=== PATIENT | female | born 1975 | race Caucasian/White ===

== ENCOUNTER 2022-09-13 15:46 | Outpatient (REF) | payer BC, SELFPAY ==
--- NOTE | 2022-09-13 15:05 | PAPFT_PTH ---
PATIENT: Chelsey Giraldo LOC: [facility] U#:[id number] AGE/SX: 47/F ROOM: RE09/13/[address]: Nu Atkinson : 1975 BED: DIS: 09/13/2022 SPEC #: [id number] RECD: 09/19/22 13:42 STATUS: EFRAIN REManny #: [id number] GERMAIN: 09/13/22 15:[address]: Nu Atkinson DEPT: [facility] Cytology RECD BY: Susan Clayton Tissues: 1 - CX/ENDOCX FOR PAP SMEARS Procedures: PAP THIN PREP/UVM Screening HPV DNA PROBE Comments: [id number]
== END 2022-09-13 15:47 | disposition home or self-care (01) ==
LOC: LBN 15:46
PROVIDERS: PCP Family Medicine; Visit Provider Family Medicine
DX: Z12.4 Encounter for screening for malignant neoplasm of cervix (principal); B37.9 Candidiasis, unspecified
CPT/HCPCS: 88142; 87624

== ENCOUNTER 2023-01-20 01:06 | Outpatient (CLI) | payer BC, SELFPAY ==
[2023-01-20 12:33] LABS: Calculated LDL 130 mg/dL (<100); Cholesterol 249 mg/dL (<200); HDL Cholesterol 105 mg/dL (40-60); Triglyceride 71 mg/dL (<150)
[2023-01-21 09:47] LABS: Hepatitis C Ab w Rflx HCV PCR Negative (Negative)
[2023-01-21 10:02] LABS: HIV-1/2 Ag & Ab Screen Negative (Negative)
== END 2023-01-20 01:07 | disposition home or self-care (01) ==
PROVIDERS: PCP Family Medicine; Visit Provider Family Medicine
DX: Z13.6 Encounter for screening for cardiovascular disorders (principal); Z11.4 Encounter for screening for human immunodeficiency virus [HIV]; Z00.00 Encounter for general adult medical examination without abnormal findings
CPT/HCPCS: 36415; 80061; 86803; 87389

== ENCOUNTER 2023-06-24 04:46 | Outpatient (CLI) | payer BC, SELFPAY ==
[2023-06-24 13:30] LABS: TSH (W/Ref FT4) 2.09 uIU/mL (0.36-3.74)
[2023-06-24 23:01] LABS: Thyroglobulin Antibody <15 U/mL (<=60); Thyroperoxidase Antibody <28 U/mL (<=60)
[2023-06-25 14:57] LABS: ANA Interpretation Negative (Negative)
[2023-06-26 12:43] LABS: Clam IgE 0.19 kU/L (<0.70); Crab IgE 0.24 kU/L (<0.70); Lobster IgE 0.28 kU/L (<0.70); Oyster IgE <0.10 kU/L (<0.70); Scallop IgE <0.10 kU/L (<0.70); Shrimp IgE <0.10 kU/L (<0.70)
== END 2023-06-24 04:47 | disposition home or self-care (01) ==
LOC: LBO 04:46
PROVIDERS: PCP Family Medicine; Visit Provider Physician Assistant
DX: Z83.49 Family history of other endocrine, nutritional and metabolic diseases (principal); H05.20 Unspecified exophthalmos; Z91.018 Allergy to other foods; L50.8 Other urticaria; T78.2XXA Anaphylactic shock, unspecified, initial encounter
CPT/HCPCS: 36415; 86376; 84443; 86003; 86038

== ENCOUNTER 2024-08-26 21:55 | Emergency (ER) | payer BC, SELFPAY ==
[2024-08-26 21:56] VITALS: BP 164/81; PULSE 75; RESP 16; TEMP 36.6; O2SAT 97
--- NOTE | 2024-08-26 22:18 | W.ED.GENAD ---
Discharge Plan Disposition Patient Disposition: Home Condition: Stable Discharge Details Clinical Impression: Otitis media Primary Care Provider: Nu Atkinson ED Provider: Madison Almonte Home Meds and New Rx's Prescriptions: New amoxicillin-pot clavulanate 875-125 mg tablet 1 tab PO BID 7 Days Qty: 14 0RF No Action propranolol 10 mg tablet 10 mg PO DAILY PRN Patient Comments: TAKE 1 TABLET BY MOUTH NEEDED FOR PUBLIC SPEAKING PHOBIA zolpidem 10 mg tablet 10 mg PO QHS PRN (Reason: insomnia) Qty: 20 0RF progesterone micronized 100 mg capsule 100 mg PO QAM Qty: 63 3RF Rx Instructions: off 7 days; repeat cycle epinephrine 0.3 mg/0.3 mL auto-injector 0.3 mg IM Q4H PRN (Reason: anaphylaxis) Qty: 2 1RF estradiol 1 mg tablet 1 mg PO DAILY Qty: 90 3RF Rx Instructions: off 1 week; repeat cycle Discharge Instructions Additional Instructions: There appears to be infected fluid behind your left eardrum. This is likely causing the surrounding lymph nodes to become enlarged. Start the antibiotic as prescribed and continue Motrin or Tylenol as needed. If you develop worsening pain fever or your ear starts to push forward these are all signs needing emergent reevaluation, otherwise please follow-up with your primary care provider early next week for reevaluation. HPI General Date/Time Provider Initiated Documentation: 08/26/24 21:58. Limitations to Documentation: no limitations. Information obtained by: patient. HPI Narrative: 49-year-old female without significant past medical history presents for evaluation of left-sided ear pain. She reports symptoms have been ongoing for the last couple days and she feels that the discharge in her ear is smelly. She reports that today she started noticing some swelling behind and in front of her ear. Some pain with that area. No fever. No recent exposures. Denies any surgery in her ear. Related Data Home Medications ?Medication ?Instructions ?Recorded ?Confirmed progesterone micronized 100 mg 100 mg PO QAM #63 caps 11/27/22 08/26/24 capsule epinephrine 0.3 mg/0.3 mL 0.3 mg (0.3 mL) IM Q4H PRN 12/31/22 08/26/24 injection, auto-injector anaphylaxis #2 ea estradiol 1 mg tablet 1 mg PO DAILY #90 tabs 02/11/24 08/26/24 propranolol 10 mg tablet 10 mg PO DAILY PRN 08/12/24 08/26/24 zolpidem 10 mg tablet 10 mg PO QHS PRN insomnia #20 tabs 08/12/24 08/26/24 amoxicillin 875 mg-potassium 1 tab PO BID 7 days #14 tabs 08/26/24 clavulanate 125 mg tablet Previous Rx's ?Medication ?Instructions ?Recorded progesterone micronized 100 mg 100 mg PO QAM #63 caps 11/27/22 capsule epinephrine 0.3 mg/0.3 mL 0.3 mg (0.3 mL) IM Q4H PRN 12/31/22 injection, auto-injector anaphylaxis #2 ea estradiol 1 mg tablet 1 mg PO DAILY #90 tabs 02/11/24 zolpidem 10 mg tablet 10 mg PO QHS PRN insomnia #20 tabs 08/12/24 amoxicillin 875 mg-potassium 1 tab PO BID 7 days #14 tabs 08/26/24 clavulanate 125 mg tablet Allergies Allergy/AdvReac Type Severity Reaction Status Date / Time shellfish derived Allergy Intermediate Hives Verified 08/26/24 22:00 benzoyl peroxide Allergy Unknown Unknown Unverified 08/26/24 22:00 gold sodium thiomalate Allergy Unknown Unknown Unverified 08/26/24 22:00 General Stated Complaint: EarProblem MARYANA: 4 Exam Narrative Exam Narrative: Review of Systems: All systems reviewed & are unremarkable except as noted in HPI and below Well-developed, no acute distress Afebrile NCAT , no appreciable facial swelling PERRL, normal conjunctiva There is a posterior auricular lymph node that is small Pinna not proptotic, no mastoid tenderness Left ear canal unremarkable no debris, TM with purulent effusion noted Right ear unremarkable RRR Unlabored respiratory effort Course Vital Signs Vital signs: Vital Signs Temperature 36.6 C 08/26/24 21:56 Pulse 75 08/26/24 21:56 Respiratory Rate 16 08/26/24 21:56 Blood Pressure 164/81 H 08/26/24 21:56 Pulse Oximetry 97 08/26/24 21:56 Temperature 36.6 C 08/26/24 21:56 Temperature Source Skin 08/26/24 21:56 Pulse 75 08/26/24 21:56 Respiratory Rate 16 08/26/24 21:56 Blood Pressure 164/81 H 08/26/24 21:56 Pulse Oximetry 97 08/26/24 21:56 Oxygen Delivery Method Room Air 08/26/24 21:56 Oxygen Flow Rate 0 08/26/24 21:56 Medical Decision Making Emergent evaluation of left ear pain. Patient is concerned about swelling around her ear which I suspect is secondary to reactive lymphadenopathy. But there is no signs of significant deep space infection or other concerns. No mastoid tenderness to indicate mastoiditis. She has symptoms consistent with a purulent effusion behind her ear which would indicate otitis media. Will treat with Augmentin. First dose given in the emergency department. The remaining doses were sent to her pharmacy to [facility]. Return precautions advised and recommend following up for reevaluation of the ear next week with her PCP PFSH All Active Problems (Updated 08/26/24 @ 22:13 by Madison Almonte MD) Otitis media (Acute) Epidermal cyst (Acute) Deviated nasal septum (Acute) Family history of thyroid disease (Acute) Proptosis (Acute) Food allergy (Acute) negative RAST for shrimp; rash improved with benadryl. Recurrent urticaria (Acute) Neck stiffness (Acute) Anaphylaxis (Acute) hx, uncertain cause Eczema of both external ears (Chronic) managed with fluocinolone oil IBS (irritable bowel syndrome) (Chronic) improves with dietary mgmt. Insomnia (Chronic) manages with intermittent use of zolpidem. Allergic rhinitis (Chronic) uses cetirizine, nasacort Medical History (Updated 08/26/24 @ 22:13 by Madison Almonte MD) Idiopathic scoliosis of cervicothoracic spine had visit with [facility] Hx of hyperparathyroidism s/p parathyroidectomy. Panic disorder without agoraphobia Related to public speaking and job stress, managed with beta blockers. 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 Colposcopy x 1; resolved with subsequent negative pap/HPV. Premature ovarian failure (~2014) Age 39. Managed with HRT; opted out of genetic testing. Near syncope Intermittent, related to healthcare Surgical History (Updated 09/13/22 @ 14:42 by Nu Atkinson MD) S/P parathyroidectomy age 38 Family History (Updated 10/01/23 @ 14:25 by Nu Atkinson MD) Mother No problems noted. Father Hyperlipidemia Leukemia Thyroid cancer Carotid artery stenosis Maternal Grandfather , 71 Alcohol use disorder Cancer Liver Paternal Grandfather , 50's Heart disease Maternal Grandmother , 81 Cancer Uterine Depression Anxiety Stroke Paternal Grandmother , 50's Bone cancer Exposed to radium in youth. - Per patient packet Social History (Updated 10/01/23 @ 14:26 by Nu Atkinson MD) Smoking/Tobacco Use Status: Never Second Hand Exposure: Yes Smoking risk assessment performed?: Yes Alcohol Intake: current Alcohol Intake frequency: a few times a week Alcohol type: beer, wine and hard liquor Drug use: Occasionally Substance use type: marijuana Caregiver/Support person: Yes Details: is caregiver for spouse - he has expressive aphasia Household members: spouse and children Housing: house Number of Children: 0 Communication Needs: None Education Level: college Details: BA in [place] Do you need help understanding health information?: Never current occupation: Works as a copyrighter. Pets and animals: Yes Pets and animals: dog(s) Sexually active: Yes Do you think of yourself as: straight/heterosexual Current gender identity: female What is your relationship status?: living with partner How often do you talk on the phone with friends or family?: twice per week How often do you get together with friends or relatives?: three or more times per week How often do you attend sikhism or voodoo services?: 1-3 times per year Do you belong to any clubs or organized social groups?: no Panel score (0-1 are the most socially isolated patients): 2 What type of physical activity do you participate in: walking, other Details: Strength Training; gardening and running Frequency: daily Tori/Denominational: Agnostic Seatbelt use: always Helmet use: Yes Helmet use: sometimes Drive intox or ride w/intox car pick up driver: No Additional Social history: Enjoys gardening, ceramics.
[2024-08-26] MEDS: Amoxicillin 875/Clav. 125 TAB PO (22:31)
== END 2024-08-26 22:31 | disposition home or self-care (01) ==
PROVIDERS: Emergency Provider Emergency Medicine; PCP Family Medicine
DX: H66.92 Otitis media, unspecified, left ear (principal)
CPT/HCPCS: 99283 ×2

== ENCOUNTER 2024-10-18 15:05 | Emergency (ER) | payer BC, SELFPAY ==
[2024-10-18 15:16] VITALS: BP 144/85; PULSE 88; RESP 16; TEMP 36.9; O2SAT 95
--- NOTE | 2024-10-18 16:42 | W.ED.GENAD ---
Discharge Plan Disposition Patient Disposition: Home Condition: Good Discharge Details Clinical Impression: Acute otitis media of left ear with perforated tympanic membrane Primary Care Provider: Nu Atkinson ED Provider: Soledad Stinson Home Meds and New Rx's Prescriptions: New cefpodoxime 200 mg tablet 200 mg PO BID Qty: 10 0RF Rx Instructions: must administer with a meal/food Continued epinephrine 0.1 mg/0.1 mL auto-injector 0.1 ml subcut Q5-15M PRN (Reason: hypersensitivity reaction) Qty: 2 3RF estradiol [Estrace] 0.01 % (0.1 mg/gram) cream 0.5 g vaginal QWEEK Qty: 42.5 3RF progesterone micronized 100 mg capsule 100 mg PO QAM Qty: 63 3RF Rx Instructions: off 7 days; repeat cycle zolpidem 10 mg tablet 10 mg PO QHS PRN (Reason: insomnia) Qty: 20 0RF propranolol 10 mg tablet 10 mg PO DAILY PRN Patient Comments: TAKE 1 TABLET BY MOUTH NEEDED FOR PUBLIC SPEAKING PHOBIA estradiol 1 mg tablet 1 mg PO DAILY Qty: 90 3RF Rx Instructions: off 1 week; repeat cycle Discharge Instructions Instructions: Ruptured Eardrum ED Additional Instructions: Please call your primary care provider first thing in the morning to schedule follow-up appointment. I recommend that you keep your appointment with the specialist ENT as scheduled to discuss your frequent ear infections. I have prescribed an antibiotic called cefpodoxime. Please take the full course as prescribed. You may use warm compresses or cool compresses as needed for discomfort to your ear. Tylenol and ibuprofen may also be helpful. Please do not put anything in your ear such as Q-tips or eardrops. Avoid getting water in your ear. When you take a shower, please be sure to put a cottonball in your ear to prevent it from getting wet. Do not do any swimming while you have a perforated tympanic membrane Return to emergency care if you develop new fever/chills, hearing loss, severe headaches, vision changes, swelling on one side of your neck or protrusion of the ear, or if you are very worried and need to be rechecked again immediate Referrals: Nu Atkinson MD [Primary Care Provider, Medicine] Discharge Data Discharge Date/Time-TO BE ENTERED AT DEPARTURE: 10/18/24 16:57 HPI General Date/Time Provider Initiated Documentation: 10/18/24 15:51. HPI Narrative: Suki is a 49-year-old female who presents to the emergency department today for evaluation of left ear pain and drainage. She reports that she was diagnosed with an ear infection approximately 1 month ago, treated with Augmentin and symptoms fully resolved. 1 week ago developed ear pressure L>R with yellow drainage from her ear for the last 5 days. Denies associated fever/chills, unusual headaches, significant vision changes, sore throat, neck pain, cough. Use some calamine lotion outside of ear, but has not put anything in her ear. She does have some swelling to the lymph nodes behind her right ear as well. Has been taking allergy medications and decongestants without improvement of symptoms. She does have a history of frequent ear infections, has an appoint with ENT next month. Related Data Home Medications ?Medication ?Instructions ?Recorded ?Confirmed estradiol 1 mg tablet 1 mg PO DAILY #90 tabs 02/11/24 10/18/24 propranolol 10 mg tablet 10 mg PO DAILY PRN 08/12/24 10/18/24 epinephrine 0.1 mg/0.1 mL 0.1 ml subcut Q5-15M PRN 10/01/24 10/18/24 injection, auto-injector hypersensitivity reaction #2 ea estradiol 0.01% (0.1 mg/gram) 0.5 g vaginal QWEEK #42.5 grams 10/01/24 10/18/24 vaginal cream (Estrace) progesterone micronized 100 mg 100 mg PO QAM #63 caps 10/01/24 10/18/24 capsule zolpidem 10 mg tablet 10 mg PO QHS PRN insomnia #20 tabs 10/01/24 10/18/24 cefpodoxime 200 mg tablet 200 mg PO BID #10 tabs 10/18/24 Previous Rx's ?Medication ?Instructions ?Recorded estradiol 1 mg tablet 1 mg PO DAILY #90 tabs 02/11/24 epinephrine 0.1 mg/0.1 mL 0.1 ml subcut Q5-15M PRN 10/01/24 injection, auto-injector hypersensitivity reaction #2 ea estradiol 0.01% (0.1 mg/gram) 0.5 g vaginal QWEEK #42.5 grams 10/01/24 vaginal cream (Estrace) progesterone micronized 100 mg 100 mg PO QAM #63 caps 10/01/24 capsule zolpidem 10 mg tablet 10 mg PO QHS PRN insomnia #20 tabs 10/01/24 cefpodoxime 200 mg tablet 200 mg PO BID #10 tabs 10/18/24 Allergies Allergy/AdvReac Type Severity Reaction Status Date / Time shellfish derived Allergy Intermediate Hives Verified 10/01/24 14:01 benzoyl peroxide Allergy Unknown Unknown Unverified 10/01/24 14:01 gold sodium thiomalate Allergy Unknown Unknown Unverified 10/01/24 14:01 General Stated Complaint: EarProblem MARYANA: 4 Exam Narrative Exam Narrative: General Appearance: Normal. Patient alert and oriented, no acute distress Vital signs: Within normal limits. HEENT: Perforation noted in left TM, pus in the external auditory ear canal. No pain with manipulation of pinna or protrusion of ear. Normal right TM. Neurological: Normal facial strength, clear speech. Skin: Warm and dry, no rash. Psychiatric: Normal. Course Vital Signs Vital signs: Vital Signs Temperature 36.9 C 10/18/24 15:16 Pulse 88 10/18/24 15:16 Respiratory Rate 16 10/18/24 15:16 Blood Pressure 144/85 H 10/18/24 15:16 Pulse Oximetry 95 10/18/24 15:16 Temperature 36.9 C 10/18/24 15:16 Temperature Source Oral 10/18/24 15:16 Pulse 88 10/18/24 15:16 Respiratory Rate 16 10/18/24 15:16 Blood Pressure 144/85 H 10/18/24 15:16 Blood Pressure Position Sitting 10/18/24 15:16 Pulse Oximetry 95 10/18/24 15:16 Oxygen Delivery Method Room Air 10/18/24 15:16 Oxygen Flow Rate 0 10/18/24 15:16 Pain Level 5 10/18/24 15:16 Medical Decision Making Initial Assessment: 49-year-old female with left ear infection w TM perforation. History of ear infection treated with antibiotics recently. Symptoms worsened despite allergy medications and decongestants. History and presentation consistent with AOM with TM rupture. No red flags concerning for deep space infection or extension of infection/sepsis requiring blood work or diagnostic imaging at this time. Patient does not meet SIRS criteria ED Course: - Initiated antibiotics (cefpodoxime) x 10 days Final Assessment: Initiated antibiotics due to tympanic membrane rupture with purulent drainage. Recommend continued follow-up with ENT as scheduled for further evaluation. Clinical Impression: - Tympanic membrane rupture - Left ear infection Disposition: Reviewed discharge instructions with patient, including care of AOM with TM rupture, symptomatic management, and red flags indicate need for return to emergency care. Recommend close follow-up with ENT and PCP. - Discharge: Home. Monitor for fevers, severe headaches, new vision changes, difficulty opening mouth, or swelling behind the ear. Contact PCP if symptoms worsen. - Follow-Up: Referral already made to ENT. Contact PCP, Dr. Lowe, for further evaluation. Patient Education: Avoid water exposure and use of drops in ears. Monitor for signs of worsening condition. Patient consented to the use of KRUPA I did review patient's previous ED visit, AOM was diagnosed on 08/26/2024. She was treated appropriately Augmentin, will treat with cefpodoxime and have her follow-up closely with PCP Quality:SDOH Health Related Social Needs: Health related social needs lonely/isolated PFSH All Active Problems (Updated 10/18/24 @ 16:46 by Soledad Burks) Acute otitis media of left ear with perforated tympanic membrane (Acute) Anxiety (Chronic) Menopausal and perimenopausal disorder (Acute) Tremor (Acute) facial tremor with smiling Epidermal cyst (Acute) Deviated nasal septum (Acute) Family history of thyroid disease (Acute) Proptosis (Acute) Food allergy (Acute) negative RAST for shrimp; rash improved with benadryl. Recurrent urticaria (Acute) Neck stiffness (Acute) Anaphylaxis (Acute) hx, uncertain cause Eczema of both external ears (Chronic) managed with fluocinolone oil IBS (irritable bowel syndrome) (Chronic) improves with dietary mgmt. Insomnia (Chronic) manages with intermittent use of zolpidem. Allergic rhinitis (Chronic) uses cetirizine, nasacort Medical History (Updated 10/18/24 @ 16:46 by Soledad Burks) Idiopathic scoliosis of cervicothoracic spine had visit with [facility] Hx of hyperparathyroidism s/p parathyroidectomy. Panic disorder without agoraphobia Related to public speaking and job stress, managed with beta blockers. 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 Colposcopy x 1; resolved with subsequent negative pap/HPV. Premature ovarian failure (~2014) Age 39. Managed with HRT; opted out of genetic testing. Near syncope Intermittent, related to healthcare Surgical History (Updated 09/13/22 @ 14:42 by Nu Atkinson MD) S/P parathyroidectomy age 38 Family History (Updated 10/01/24 @ 16:57 by Nu Atkinson MD) Mother Age: 83 Cancer Father Hyperlipidemia Leukemia Thyroid cancer Carotid artery stenosis Maternal Grandfather , 71 Alcohol use disorder Cancer Liver Paternal Grandfather , 50's Heart disease Maternal Grandmother , 81 Cancer Uterine Depression Anxiety Stroke Paternal Grandmother , 50's Bone cancer Exposed to radium in youth. - Per patient packet Social History (Updated 10/01/23 @ 14:26 by uN Atkinson MD) Smoking/Tobacco Use Status: Never Second Hand Exposure: Yes Smoking risk assessment performed?: Yes Alcohol Intake: current Alcohol Intake frequency: a few times a week Alcohol type: beer, wine and hard liquor Drug use: Occasionally Substance use type: marijuana Caregiver/Support person: Yes Details: is caregiver for spouse - he has expressive aphasia Household members: spouse and children Housing: house Number of Children: 0 Communication Needs: None Education Level: college Details: BA in [place] Do you need help understanding health information?: Never current occupation: Works as a copyrighter. Pets and animals: Yes Pets and animals: dog(s) Sexually active: Yes Do you think of yourself as: straight/heterosexual Current gender identity: female What is your relationship status?: living with partner How often do you talk on the phone with friends or family?: twice per week How often do you get together with friends or relatives?: three or more times per week How often do you attend uatsdin or zoroastrian services?: 1-3 times per year Do you belong to any clubs or organized social groups?: no Panel score (0-1 are the most socially isolated patients): 2 What type of physical activity do you participate in: walking, other Details: Strength Training; gardening and running Frequency: daily Tori/Advent: Agnostic Seatbelt use: always Helmet use: Yes Helmet use: sometimes Drive intox or ride w/intox after school driver: No Additional Social history: Enjoys gardening, ceramics.
[2024-10-18 16:47] VITALS: BP 144/85; PULSE 88; RESP 16; TEMP 36.9; O2SAT 95
== END 2024-10-18 16:57 | disposition home or self-care (01) ==
PROVIDERS: Emergency Provider Nurse Practitioner Family; PCP Family Medicine
DX: H66.92 Otitis media, unspecified, left ear (principal); H72.92 Unspecified perforation of tympanic membrane, left ear; R03.0 Elevated blood-pressure reading, without diagnosis of hypertension
CPT/HCPCS: 99283 ×2

== ENCOUNTER 2024-12-21 01:34 | Outpatient (CLI) | payer BC, SELFPAY ==
[2024-12-21 12:53] LABS: Anion Gap 8.8 mmol/L (3-11); BUN 14 mg/dL (7-18); CO2 28.2 mmol/L (21.0-32.0); Calcium 9.0 mg/dL (8.5-10.1); Chloride 105 mmol/L (98-107); Estimated GFR 106.62 (mL/min/1.73m2); Glucose 98 mg/dL (74-106); Potassium 3.7 mmol/L (3.5-5.1); Sodium 142 mmol/L (136-145)
== END 2024-12-21 01:35 | disposition home or self-care (01) ==
LOC: LBO 01:34
PROVIDERS: PCP Family Medicine; Visit Provider Family Medicine
DX: Z13.1 Encounter for screening for diabetes mellitus (principal)
CPT/HCPCS: 36415; 80048

== ENCOUNTER 2025-01-17 10:11 | Outpatient (CLI) | payer BC, SELFPAY ==
[2025-01-17 11:18] LABS: Abs Immature Grans 0.00 10^3/uL (0.0-0.06); HCT 43.4 % (36.0-46.0); HGB 14.5 g/dL (11.2-15.7); Immature Grans % 0.0 %; MCH 31.0 pg (27.0-33.0); MCHC 33.4 % (32.0-36.0); MCV 93 fL (80-95); MPV 8.6 fL (8.0-11.0); Platelet Count 255 10^3/uL (130-400); RBC 4.68 10^6/uL (3.93-5.22); RDW 11.9 % (11.7-14.6); RDW-SD 40.7 fL; WBC 4.12 10^3/uL (4.4-10.8)
[2025-01-17 11:53] LABS: TSH (W/Ref FT4) 2.90 uIU/mL (0.36-3.74)
== END 2025-01-17 10:12 | disposition home or self-care (01) ==
LOC: LBO 10:11
PROVIDERS: PCP Family Medicine; Visit Provider Family Medicine
DX: R00.2 Palpitations (principal); R53.83 Other fatigue; R04.0 Epistaxis; E03.9 Hypothyroidism, unspecified
CPT/HCPCS: 36415; 84443; 85025